=== PATIENT | female | born 1930 | race Caucasian/White ===

== ENCOUNTER 2017-05-07 07:28 | Inpatient (IN) | payer MEDICARE, OTHER ==
[2017-05-07 08:01] LABS: APPEARANCE HAZY (CLEAR); COLOR YELLOW (YELLOW)
[2017-05-07 08:02] LABS: BACTERIA MANY /hpf (NONE SEEN); BILIRUBIN NEGATIVE (NEGATIVE); EPITHELIAL CELLS 0-5 /hpf (0-5); GLUCOSE NEGATIVE (NEGATIVE); KETONE NEGATIVE (NEGATIVE); NITRITE NEGATIVE (NEGATIVE); PROTEIN TRACE mg/dL (NEGATIVE); RED CELLS - URINE 0-5 /hpf (0-5); SPECIFIC GRAVITY 1.015 (1.005-1.020); UROBILINOGEN NORMAL (NORMAL)
[2017-05-07 08:05] LABS: BASOPHILS 0 % (0-2); EOSINOPHILS 0 % (0-7); HEMATOCRIT 44.4 % (36.0-48.0); IMMATURE GRANULOCYTES 0.3 % (0-5); LYMPHOCYTES 6.1 % (15-50); MCH 30.3 pg (26.0-34.0); MCHC 33.8 g/dL (31.0-37.0); MCV 89.7 fL (80.0-100.0); MEAN PLATELET VOLUME 9.3 fL (7.4-10.4); MONOCYTES 12.6 % (2-11); PLATELET COUNT 434 10x3/uL (130-400); RBC 4.95 10x6/uL (4.00-5.40); RDW 14.9 % (11.5-14.5); WBC 17.2 10x3/uL (4.8-10.8)
[2017-05-07 08:20] LABS: ALBUMIN 3.5 g/dL (3.4-5.0); ANION GAP 14.5 mmol/L (8-16); BILIRUBIN - TOTAL 0.59 mg/dL (0.2-1.3); CALCIUM 10.1 mg/dL (8.5-10.1); CARBON DIOXIDE 31.8 mmol/L (21.0-32.0); CREATININE - SERUM 1.4 mg/dL (0.6-1.3); POTASSIUM - SERUM 3.3 mmol/L (3.5-5.1)
[2017-05-07] MEDS ORDERED: OMEPRAZOLE20 M1 PO ×2 (10:24→10:25)
[2017-05-07] MEDS ORDERED: NASONEX NASAL S17 GM NS (10:26)
--- NOTE | 2017-05-07 10:27 | NUR ---
NEW ADMIT FROM ER. IV PATENT. OREINTED TO ROOM. CALL LIGHT IN REACH. WILL CONT. PLAN OF CARE.
[2017-05-07] MEDS ORDERED: ZOFRAN4 MG PO (10:28)
[2017-05-07 10:33] VITALS: BP 133/60
[2017-05-07 10:52] VITALS: BP 133/60; BMI 22.6
[2017-05-07 15:55] VITALS: BP 187/79
[2017-05-07 19:00] VITALS: BP 144/68
--- NOTE | 2017-05-07 22:39 | NUR ---
1899-REPORT RECIEVED. 1919-SHIFT ASSESSMENT COMPLETE, PLEASE SEE FLOW SHEETS FOR DETAILS. DAUGHTER AT BEDSIDE. C/O N/V, WILL PROVIDE ZOFRAN PER ORDERS. DENIES ANY OTHER PAIN/NEEDS ATT. ANSWERED ALL QUESTIONS OF DAUGHTERS' TO BEST OF ABILITY. BED LOW AND LOCKED, CALL LIGHT IN REACH. WILL CPOC.
[2017-05-08 00:55] VITALS: BP 132/63
[2017-05-08 04:02] VITALS: BP 148/71
--- NOTE | 2017-05-08 04:17 | NUR ---
0100-C/O PAIN ON COUGHING, PROVIDED EXTRA PILLOW FOR SLINTING AND GAVE INSTRUCTIONS ON HOW TO PREFORM. DENIES ANY OTHER NEEDS ATT. DAUGHTER AT BEDSIDE. BED LOW AND LOCKED, CALL LIGHT IN REACH. 0300-SLEEPING, NO S&S OF DISTRESS NOTED. BED LOW AND LOCKED, CALL LIGHT IN REACH. WILL CPOC.
--- NOTE | 2017-05-08 05:18 | NUR ---
DAUGHTER CAME OUT OF ROOM AND SAID HER MOTHER WAS NOT DOING WELL, WENT INTO ROOM, SAUGHTER SHOWED ME APPROX. 400ML LIGHT BROWN AND STOOL SMELLING VOMIT, PAGED Ari DANIELSON APN, RECIVED ORDERS FOR NGT INSERTION TO LIS, SURGERY CONSULT, AND 25MG PHENOGREN Q6H PRN EITHER IM OR SUPPOSITORY AND GIVE PT CHOICE OF WHICH.
--- NOTE | 2017-05-08 05:45 | NUR ---
NGT INSERTED AND PLACEMENT VERIFIED VIA AIR INSTILATION. PUT TO VERY SHORT AMOUNT OF FULL CONSTANT SUCTION AND 200 DARK BROWN EMISIS OUT, THEN PLACED ON LIS. TOLERATED WELL. WILL CPOC.
[2017-05-08 06:04] LABS: BASOPHILS 0 % (0-2); EOSINOPHILS 0.3 % (0-7); HEMATOCRIT 39.1 % (36.0-48.0); HEMOGLOBIN 12.9 g/dL (12-16); IMMATURE GRANULOCYTES 0.1 % (0-5); LYMPHOCYTES 9.9 % (15-50); MCH 29.7 pg (26.0-34.0); MCV 90.1 fL (80.0-100.0); MEAN PLATELET VOLUME 9.5 fL (7.4-10.4); MONOCYTES 17.4 % (2-11); NEUTROPHILS 72.3 % (40-80); PLATELET COUNT 415 10x3/uL (130-400); RBC 4.34 10x6/uL (4.00-5.40); RDW 15.1 % (11.5-14.5)
[2017-05-08 06:09] LABS: WBC 7.7 10x3/uL (4.8-10.8)
[2017-05-08 06:18] LABS: ANION GAP 14.2 mmol/L (8-16); CALCIUM 8.8 mg/dL (8.5-10.1); CARBON DIOXIDE 26.4 mmol/L (21.0-32.0); POTASSIUM - SERUM 3.6 mmol/L (3.5-5.1)
--- NOTE | 2017-05-08 07:42 | NUR ---
CALL FROM FAMILY,PASSWORD CONFIRMED
[2017-05-08 07:45] VITALS: BP 148/67
--- NOTE | 2017-05-08 08:10 | NUR ---
ASSESSMENT PER FLOW SHEET.PT WIHTOUT DISTRESS. 400CC OF DARK GREEN/BROWN DRAINAGE IN NGT CANISTER. PT WITHOUT EMESIS AT PRESENT. SHE IS ALSO WITHOUT NAUSEA, RED AREAS NOTED TO BUTTOCKS WITHOUT BREAKDOWN. CALL LIGHT IN REACH
[2017-05-08 10:45] VITALS: BMI 22.6
--- NOTE | 2017-05-08 11:15 | NUR ---
NGT PULLED BACK AND READVANCED. DARK BROWN FLUID RETURN IN [facility].
[2017-05-08 11:37] VITALS: BP 158/71
--- NOTE | 2017-05-08 12:53 | NUR ---
RESTING BETTER,WITHOUT DISTRESS.CALL LIGHT IN REACH
--- NOTE | 2017-05-08 15:25 | NUR ---
ATTEMPTED REINSERTION OF 16 LITHUANIAN NGT. RESISTANCE FELT AFTER SOME ADVANCEMENT. 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
[2017-05-08 16:08] VITALS: BP 164/77
--- NOTE | 2017-05-08 18:48 | NUR ---
STILL WAITING ON CT. REMAINS WITHOUT DISTRESS,MINIMAL NAUSEA. WITHOUT CHANGE FROM INITIAL SHIFT ASSESSMENT.CONT PLAN OF CARE
--- NOTE | 2017-05-08 19:35 | NUR ---
ALERT/AWAKE DENIES PAIN OR ANY NEEDS. FAMILY PRESENT IN ROOM, INQUIRING ABOUT TIME OF CT SCAN. PATIENT C/O BEING VERY HUNGRY. ASSESSMENTS COMPLETED. IV IN L AC INTACT WITH IVF INFUSING. SCD'S ARE ON.
--- NOTE | 2017-05-08 20:30 | NUR ---
BACK FROM CT. HAVING SOME NAUSEA. VOMITED SMALL AMOUT OF BROWNISH EMESIS. DID NOT WANT THE ORAL ZOFRAN.
[2017-05-08 20:32] VITALS: BP 156/61
--- NOTE | 2017-05-08 21:15 | NUR ---
RECEIVED ORDER FOR ZOFRAN 4MG Q6H IV FROM FRANCISCA GOODRICH APN. STATED TO CALL DR. SZYMANSKI RE: PATIENT'S REQUEST FOR SOME FOOD.
--- NOTE | 2017-05-08 21:25 | NUR ---
DID NOT WANT THE ZOFRAN, STATING "FEEL MUCH BETTER NOW". REQUESTING SOME FOOD, EXPLAINED WAITING ON RETURN CALL FROM SURGEON DR SZYMANSKI.
[2017-05-09 00:05] VITALS: BP 165/66
[2017-05-09 05:21] VITALS: BP 161/72
[2017-05-09 05:21] LABS: BASOPHILS 4.7 % (0-2); EOSINOPHILS 0.4 % (0-7); HEMATOCRIT 36.8 % (36.0-48.0); HEMOGLOBIN 11.8 g/dL (12-16); IMMATURE GRANULOCYTES 0.4 % (0-5); LYMPHOCYTES 13.8 % (15-50); MCH 29.6 pg (26.0-34.0); MCHC 32.1 g/dL (31.0-37.0); MEAN PLATELET VOLUME 10.1 fL (7.4-10.4); MONOCYTES 17.2 % (2-11); NEUTROPHILS 63.5 % (40-80); PLATELET COUNT 376 10x3/uL (130-400); RBC 3.99 10x6/uL (4.00-5.40); RDW 15.1 % (11.5-14.5); WBC 6.9 10x3/uL (4.8-10.8)
[2017-05-09 05:25] LABS: MCV 92.2 fL (80.0-100.0)
[2017-05-09 05:32] LABS: ANION GAP 12.7 mmol/L (8-16); CALCIUM 8.8 mg/dL (8.5-10.1); CARBON DIOXIDE 27.8 mmol/L (21.0-32.0); CREATININE - SERUM 0.8 mg/dL (0.6-1.3); POTASSIUM - SERUM 3.5 mmol/L (3.5-5.1)
[2017-05-09 07:45] VITALS: BP 187/82
--- NOTE | 2017-05-09 07:45 | NUR ---
AM ROUNDS COMPLETED. INTRODUCED MYSELF TO PT PRIMARY RN FOR TODAYS SHIFT. PT A&O SITTING UP IN BED AND STATES SHE FEELS "AWFUL" PT HAS STILL BEEN VOMITING BROWN FOUL SMELLING EMESIS AND STATES ITS HARD TO TAKE DEEP BREATHES. LUNG SOUNDS ARE CTA THROUGHOUT ALL LOBES. PULSE OX 99% ON RA. PTS ABDOMEN IS DISTENDED FOR HER AND SHE STATES BIGGER THAN YESTERDAY. ABDOMEN IS SOFT AND SLIGHTLY TENDER. PT STATES NO BM SINCE SATURDAY MORNING. BOWEL SOUNDS ARE HYPOACTIVE. PT WEARING SCDS AND PULSES ARE PALPABLE, SLIGHT DEPENDENT EDEMA NOTED TO BILAT LE AND PT STATES ITS HER NORM R/T ARTHRITIS. PT C/O HER KNEE ACHING WELL FROM ARTHRITIS AND I ENCOURAGED HER TO GET UP AND BE AMBULATORY IF POSSIBLE. PT CURRENTLY ABOUT TO BATHE WITH DAUGHTER AT BEDSIDE AND THEN WILL TRY FOR A WALK. FAMILY INQUIRING ABOUT PTS NG TUBE R/T NOT BEING IN OR BEING ABLE TO REPLACE IT STATES TOLD HER THEY MAY NEED IT DONE WITH A SCOPE. WILL PAGE AND FIND OUT PLAN. NO FURTHER NEEDS AT THIS TIME. CL IN REACH, BED IN LOWEST, SIDE RAILS X2. WILL CPOC.
--- NOTE | 2017-05-09 08:00 | NUR ---
DR.BREVING ORTIZ WITH CONSULT FOR IR FOR NG PLACEMENT. IR STATES THEY CAN DO IT AROUND 1030. DISCUSSED WITH FAMILY AND PT BOTH VERBALIZED UNDERSTANDING AND DENY ANY FURTHER QUESTIONS OR NEEDS AT THIS TIME. WILL CPOC.
--- NOTE | 2017-05-09 09:29 | NUR ---
PT OUT AMBULATING WITH FAMILY MEMBER AT SIDE AND USING A WALKER. GAIT SLOW STEADY AND SAFE. NONSLIP SOCKS IN PLACE. PT DENIES ANY CURRENT NEEDS.
--- NOTE | 2017-05-09 10:58 | NUR ---
IR CALLED REQUESTING ME TO INSERT NG MUCH POSSIBLE THEN THEY CAN ADVANCE IT FURTHER. PT AND FAMILY REFUSED THIS AND STATED "I DO NOT FEEL COMFORTABLE WITH THAT BECAUSE IT HAS BEEN TRIED 3 TIMES UNSUCCESSFUL AND I DONT FEEL COMFORTABLE" REPORTED TO IR. NO FURTHER NEEDS AT THIS TIME. WILL CONTINUE TO WAIT.
--- NOTE | 2017-05-09 11:20 | NUR ---
PT LEAVING FOR NG PLACEMENT NOW.
--- NOTE | 2017-05-09 12:49 | NUR ---
PT BACK FROM NG PLACEMENT. NG SECURED TO NOSE AND CONNECTED TO LIS ON WALL CANISTER. PT DRAINING DARK BROWN FLUIDS WITH OVER 400ML OUTPUT SINCE BEING PLACED. PROVIDED PT WITH ORAL CARE AND SHE VOICED THANKS. PT DENIES ANY FURTHER NEEDS AT THIS TIME. CL IN REACH, FAMILY AT BEDSIDE. WILL CPOC.
--- NOTE | 2017-05-09 13:34 | NUR ---
AT BESIDE AND ATTEMPTED MANIPULATION OF HERNIA TO R.GROIN AND WAS UNSUCCESSFUL PT WILL BE SCHEDULED FOR EMERGENT SX AND REPAIR. PT AND FAMILY AT BEDSIDE AND VERBALIZED UNDERSTANDING. CONSENTS BEING SIGNED AND AWAITING SX ROOM. WILL CPOC.
--- NOTE | 2017-05-09 14:09 | NUR ---
EKG COMPLETED ORDERED. PRE OP MEDS GIVEN AND PRE OP CHECKLIST DONE. ALL JEWLRY REMOVED AND ALLERGY BAND IN PLACE. PT READY TO LEAVE. SX TECH HERE NOW AND TAKING PT. NO FURTHER NEEDS AT THIS TIME. WILL CPOC.
--- NOTE | 2017-05-09 17:08 | NUR ---
TRANSFERRING CARE TO MISSAEL Thompson RN
--- NOTE | 2017-05-09 17:09 | NUR ---
TAKING OVER PT FROM RN GABRIELLA IN STABLE CONDITION. A&OX4. WILL CONTINUE TO MONITOR
[2017-05-09 17:41] VITALS: BP 158/58
--- NOTE | 2017-05-09 17:54 | NUR ---
PT BACK FROM PROCEDURE AND RESTING QUIETLY. RR NONLABORED WITH NC @2L IN PLACE. VSS AND BEING MONITERED Q15MIN PER POLICY FOR POST OP. PT HAS AN INCISION TO HER R.GROIN WITH STERI STRIPS INTACT AND CLEAN. NO S/S OF INFECTION OR BLEEDING NOTED. PT NOW HAS MATTHEW WITH STAT LOCK SECURED TO R.INNER THIGH DRAINING CLEAR YELLOW URINE. CALLED SX AND THEY STATED TO KEEP MATTHEW IN OVERNIGHT R/T HER AGE AND PROCEDURE. TEACHING PROVIDED TO FAMILY ABOUT HER UTI AND FURTHER INFECTION RISK R/T MATTHEW IN PLACE. WILL KEEP CLEAN AND PROVIDE MATTHEW CARE AND REMOVE SOON ALLOWED. PT DENIES ANY CURRENT PAIN OR NEEDS AT THIS TIME. CL IN REACH, BED IN LOWEST, SIDE RAILS X2. WILL CPOC.
--- NOTE | 2017-05-09 18:02 | NUR ---
REASON NO STOOL COLLECTED ON MY SHIFT-PT DID NOT HAVE BOWEL MOVEMENT. PT IS AWARE OF COLLECTOIN NEEDED AND VERBALIZED UNDERSTANDING. WILL PASS OFF IN REPORT.
--- NOTE | 2017-05-09 19:40 | NUR ---
TITLE ASSISTANT AT BEDSIDE TO OBTAIN VITALS, CALL LIGHT IN REACH. WILL CONTINUE WITH PLAN OF CARE.
--- NOTE | 2017-05-09 19:46 | NUR ---
PT IN BED FAMILY AT BEDSIDE. DENIES NEEDS AT THIS TIME.
[2017-05-10] VITALS: BP 156/63
[2017-05-10 04:00] VITALS: BP 155/67
[2017-05-10 05:45] LABS: BASOPHILS 0.1 % (0-2); EOSINOPHILS 0 % (0-7); HEMATOCRIT 37.2 % (36.0-48.0); HEMOGLOBIN 11.9 g/dL (12-16); IMMATURE GRANULOCYTES 0.4 % (0-5); LYMPHOCYTES 9.3 % (15-50); MCH 29.6 pg (26.0-34.0); MCV 92.5 fL (80.0-100.0); MEAN PLATELET VOLUME 9.6 fL (7.4-10.4); MONOCYTES 10.4 % (2-11); NEUTROPHILS 79.8 % (40-80); PLATELET COUNT 349 10x3/uL (130-400); RBC 4.02 10x6/uL (4.00-5.40)
[2017-05-10 05:53] LABS: CALC OSMOLALITY 291 mosm/kg (275-300); CALCIUM 8.5 mg/dL (8.5-10.1); CARBON DIOXIDE 21.3 mmol/L (21.0-32.0); CHLORIDE - SERUM 112 mmol/L (98-107); CREATININE - SERUM 0.7 mg/dL (0.6-1.3); GLUCOSE 90 mg/dL (74-106); POTASSIUM - SERUM 3.7 mmol/L (3.5-5.1); SODIUM 145 mmol/L (136-145); UREA NITROGEN 21 mg/dL (7-18); eGFR NON AFRICAN AMERICAN 84 mL/min (90-120)
--- NOTE | 2017-05-10 07:45 | NUR ---
AM ROUNDS COMPLETED. SHIFT ASSESSMENT DONE. PT REMEMBERS ME HER PRIMARY RN FROM YESTERDAY. PT A&O AND STATES SHE IS FEELING BETTER OVERALL. NO FURTHER VOMITING SINCE SX YESTERDAY. NGT STILL SECURED TO TitiNARE AND CONNECTED TO LIS. DRAINAGE NOW GREEN BILE LOOKING LIQUID NO BROWN DRAINAGE NOTED. R.GROIN INCISION STILL CLEAN AND DRY. MATTHEW STILL IN PLACE BUT NO NEED SO AWAITING ON ORDERS TO D/C. PT DENIES ANY CURRENT PAIN OR NEEDS. CL IN REACH. WILL CPOC.
[2017-05-10 08:02] VITALS: BP 171/66
--- NOTE | 2017-05-10 10:51 | NUR ---
Patient Name: LM LOW Admission Status: ER Accout number: [id number] Admission Date: 05-07-2017 : 1930 Admission Diagnosis:NAUSEA WITH VOMITING, UNSPECIFIED Attending: DANIEL AGARWAL Current LOS: 3 Anticipated DC Date: Planned Disposition: Home Primary Insurance: MEDICARE A & B LATE ENTRY FROM 05-09-17: Discharge Planning Comments: * Is the patient Alert and Oriented? Yes 0 * How many steps to enter\exit or inside your home? 2 0 * PCP DR. BERNABE 0 * Pharmacy [id number] 0 * Preadmission Environment Home Alone 0 * ADLs Independent 0 * Equipment Cane Walker 0 * Other Equipment [facility] NEEDS NO MEDICAL EQUIPMENT PROVIDER PREFERENCE 0 * List name and contact numbers for known caregivers / representatives who currently or will assist patient after discharge: HELADIO WELLS DTR, 0 * Community resources currently utilized None 0 * Please name any agencies selected above. NONE 0 * Additional services required to return to the preadmission environment? No 0 * Can the patient safely return to the preadmission environment? Yes 0 * Has this patient been hospitalized within the prior 30 days at any hospital? No 0 CM MET WITH PT IN ROOM TO DISCUSS DISCHARGE PLANNING AND NEEDS. PT REPORTS LIVING AT HOME INDEPENDENTLY AND ALONE. PT HAS CANE AND 2 WHEELED WALKER; PT HAS NO MEDICAL EQUIPMENT PROVIDER PREFERENCE AND THINKS SHE WOULD USE THE [facility] FOR ANY EQUIPMENT THAT SHE CAN GET THERE. PT HAS NO OUTSIDE SERVICES ASSISTING IN THE HOME. CM DISCUSSED AVAILABILITY OF HOME HEALTH, REHAB SERVICES AND MEDICAL EQUIPMENT. PT DENIES DISCHARGE NEEDS, REPORTS HER DAUGHTER WILL PICK HER UP FOR DISCHARGE HOME. PT PLANS TO DISCHARGE HOME, DENIES DISCHARGE NEEDS AT THIS TIME. CM TO FOLLW AND ASSIST NEEDED. Inserting Machine Operator: Kelton Amaral
--- NOTE | 2017-05-10 11:04 | NUR ---
Nutrition Follow Up: Chart reviewed. Pt is POD 1 open R inguinal hernia repair with mesh; small bowel obstruction. Wt stable. No BM. Meds and labs reviewed. Rec advancing SEKOU when medically feasible. RD following.
[2017-05-10 12:00] VITALS: BP 184/72
--- NOTE | 2017-05-10 12:32 | NUR ---
TEGADERM CHANGED TO L.AC PIV R/T IT BEING SOILED WITH LEAKAGE, PIV STILL PATENT AND FLUSHES WELL WILL KEEP AN EYE ON IT. NS WITH 20MEQ OF KCL INFUSING @100ML/HR ALONG WITH Q24 IVPB ROCEPHIN. DRSG NOW CDI AND SWAB CAPS IN USE. PT RESTING WITH FAMILY AT BEDSIDE. RR NONLABORED ON RA. PT DENIES ANY CURRENT NEEDS AT THIS TIME. CL IN REACH. WILL CPOC.
--- NOTE | 2017-05-10 13:15 | NUR ---
ASSUMED CARE OF PT. FAMILY AT BEDSIDE. FAMILY AT PT REQUESTING TO H AVE NG AND MATTHEW CATHETER REMOVED TODAY. DR. DEMARCO HAS BEEN PAGED. RR EVEN AND UNLABORED. WILL CTM.
--- NOTE | 2017-05-10 13:28 | NUR ---
CALLED INQUIRING ABOUT MATTHEW OUT AND NGT PT REQUESTED. WILL REMOVE BOTH BUT STILL WANTS NPO EXCEPT ICE CHIPS. WILL CPOC.
--- NOTE | 2017-05-10 14:22 | NUR ---
MATTHEW CATHETER REMOVED. 10 MLS OF FLUID REMOVED FROM MATTHEW BALLOON PRIOR TO REMOVAL. NG TUBE REMOVED, 250 MLS OF GREEN, LIQUID NOTED IN SUCTION CONTIANER. PT NOW RESTING QUIETLY, REPORTS FEELING MUCH BETTER SINCE NG TUBE REMOVAL.
[2017-05-10 16:00] VITALS: BP 188/69
--- NOTE | 2017-05-10 18:40 | NUR ---
PT RESTING QUIETLY, STILL NO URINE OUTPUT OR BM SINCE MATTHEW REMOVAL. PT DENIES FEELING THOUGH SHE NEEDS TO URINATE. WILL GIVE REPORT ON PT CONDTION FOR THE DAY, FAMILY AT BEDSIDE.
[2017-05-10 19:00] VITALS: BP 146/74
--- NOTE | 2017-05-10 19:00 | NUR ---
ALERT/AWAKE ORIENTED X 4. ASSESSMENTS COMPLETED. LOWER RIGHT ABD INCISION WITH STERI-STRIP INTACT. NO BLEEDING OR SWELLING NOTED. IV IN L AC WITH NS 20 INFUSING AT 100 ML/HR. DENIES ANY NEEDS OR DISCOMFORTS. FAMILY MEMBER PRESENT IN ROOM.
--- NOTE | 2017-05-10 19:00 | NUR ---
ALERT/AWAKE ORIENTED X 4. ASSESSMENTS COMPLETED. LOWER RIGHT ABD INCISION WITH STERI-STRIP INTACT. NO BLEEDING, REDNESS OR SWELLING NOTED. IV IN R FA INTACT SL. TELEMETRY SHOWS 79 CAFIB. SCD'S ARE ON. FAMILY PRESENT IN ROOM. NO QUESTIONS OR CONCERNS VOICED.
--- NOTE | 2017-05-10 20:00 | NUR ---
SOCIAL MEDIA CONTENT MANAGER ASSISTED TO BATHROOM TO VOID, STATED IV FELL OUT.
--- NOTE | 2017-05-10 23:30 | NUR ---
IV RESITED IN LEFT ARM, FLUIDS RESTARTED. DENIES ANY NEEDS.
[2017-05-11] VITALS: BP 174/72
[2017-05-11 04:00] VITALS: BP 172/74
--- NOTE | 2017-05-11 05:11 | NUR ---
RESTING QUIETLY WITH EYES CLOSED. RR EVEN U/L. NO S/S OF DISCOMFORT. FAMILY MEMBER PRESENT IN ROOM.
--- NOTE | 2017-05-11 05:46 | NUR ---
ASSISTED TO BATHROOM TO VOID. NO OTHER NEEDS VOICED.
[2017-05-11 06:21] LABS: BASOPHILS 0.2 % (0-2); EOSINOPHILS 2.2 % (0-7); HEMATOCRIT 36.7 % (36.0-48.0); HEMOGLOBIN 11.7 g/dL (12-16); IMMATURE GRANULOCYTES 0.9 % (0-5); MCH 29.3 pg (26.0-34.0); MCHC 31.9 g/dL (31.0-37.0); MEAN PLATELET VOLUME 9.5 fL (7.4-10.4); MONOCYTES 12.8 % (2-11); NEUTROPHILS 68.9 % (40-80); PLATELET COUNT 352 10x3/uL (130-400); RBC 3.99 10x6/uL (4.00-5.40); RDW 14.6 % (11.5-14.5)
[2017-05-11 06:41] LABS: CALC OSMOLALITY 284 mosm/kg (275-300); CALCIUM 8.7 mg/dL (8.5-10.1); CARBON DIOXIDE 20.5 mmol/L (21.0-32.0); CHLORIDE - SERUM 109 mmol/L (98-107); CREATININE - SERUM 0.7 mg/dL (0.6-1.3); GLUCOSE 79 mg/dL (74-106); POTASSIUM - SERUM 3.3 mmol/L (3.5-5.1); SODIUM 143 mmol/L (136-145); UREA NITROGEN 15 mg/dL (7-18); eGFR NON AFRICAN AMERICAN 84 mL/min (90-120)
--- NOTE | 2017-05-11 07:49 | NUR ---
AM ROUNDS COMPLETED. INTRODUCED MYSELF TO PT PRIMARY RN FOR TODAYS SHIFT. PT A&O SITTING UP IN BED AND STATES SHE FEELS "MISERABLE" AND "STARVING" PREFERRED PT TO REMAIN NPO UNTIL SHE COULD HAVE A BOWEL MOVEMENT BUT PT FEELS SHE CANT WITHOUT FOOD AND STATES SHE HASNT EATEN IN A WEEK. PT IS NOW PASSING GAS AND BOWEL SOUNDS ARE ACTIVE. WILL NOTIFY AND SEE IF SHE CAN MAYBE START CLEAR LIQUIDS OR POPCICLES. R.GROIN INCISION CDI WITH STERI-STRIP IN PLACE, NO S/S OF BLEEDING OR HEMATOMA NOTED. PTS MATTHEW WAS REMOVED YESTERDAY AND SHE STATES SHE HAS VOIDED SEVERAL TIMES SINCE. PT READY TO AMBULATE WITH THERAPY TODAY AND IS MOTIVATED. PT DENIES ANY CURRENT PAIN OR NEEDS AT THIS TIME. CL IN REACH, BED IN LOWEST, SIDE RAILS X2. WILL CPOC.
[2017-05-11 08:00] VITALS: BP 165/72
--- NOTE | 2017-05-11 10:00 | NUR ---
PT OOB WITH THERAPY AND AMBULATING IN THE [place] WITH WALKER. GAIT IS SLOW AND STEADY. NO CURRENT NEEDS. WILL CPOC.
[2017-05-11 12:00] VITALS: BP 157/73
--- NOTE | 2017-05-11 12:22 | NUR ---
INITIATED PTS IVPB INFUSING VIA L.FA PIV WITH VALERI CDI AND SWAB CAPS IN USE. CALLED AND HE OKAY'D FOR CLEAR LIQUID DIET, TEACHING PROVIDED TO PT TO TAKE IT SLOW AND WHAT THAT DIET WILL CONSIST OF. PT SITTING UP IN BEDSIDE CHAIR AND DENIES ANY PAIN OR CURRENT NEEDS. WILL CPOC.
[2017-05-11 16:00] VITALS: BP 189/79
[2017-05-11 19:00] VITALS: BP 169/76
--- NOTE | 2017-05-11 19:44 | NUR ---
RECEIVED REPORT, WILL ASSUME CARE OF PT, PT SLEEPING, BED IS LOW, SRX2, CALL LIGHT IN REACH, WILL CONTINUE PLAN OF CARE
[2017-05-12] VITALS: BP 173/75
--- NOTE | 2017-05-12 00:21 | NUR ---
ASSESSMENT COMPLETE, SEE FLOW SHEET, PT AWAKE, BED IS LOW, SRX2, SCD ARE ON, CALL LIGHT IN REACH, DAUGHTER AT BEDSIDE, WILL CONTINUE PLAN OF CARE
[2017-05-12 04:03] VITALS: BP 164/70
[2017-05-12 06:37] LABS: BASOPHILS 0.1 % (0-2); EOSINOPHILS 4.2 % (0-7); HEMATOCRIT 35.5 % (36.0-48.0); HEMOGLOBIN 11.5 g/dL (12-16); IMMATURE GRANULOCYTES 0.8 % (0-5); LYMPHOCYTES 16.9 % (15-50); MCH 29.3 pg (26.0-34.0); MCHC 32.4 g/dL (31.0-37.0); MCV 90.6 fL (80.0-100.0); MEAN PLATELET VOLUME 9.2 fL (7.4-10.4); MONOCYTES 11.4 % (2-11); NEUTROPHILS 66.6 % (40-80); PLATELET COUNT 320 10x3/uL (130-400); RBC 3.92 10x6/uL (4.00-5.40); RDW 14.6 % (11.5-14.5); WBC 9.1 10x3/uL (4.8-10.8)
[2017-05-12 06:41] LABS: CALC OSMOLALITY 282 mosm/kg (275-300); CALCIUM 8.3 mg/dL (8.5-10.1); CARBON DIOXIDE 19.9 mmol/L (21.0-32.0); CHLORIDE - SERUM 110 mmol/L (98-107); CREATININE - SERUM 0.5 mg/dL (0.6-1.3); GLUCOSE 91 mg/dL (74-106); POTASSIUM - SERUM 3.3 mmol/L (3.5-5.1); SODIUM 142 mmol/L (136-145); UREA NITROGEN 12 mg/dL (7-18); eGFR NON AFRICAN AMERICAN > 90 mL/min (90-120)
--- NOTE | 2017-05-12 07:45 | NUR ---
INTRODUCED MYSELF TO PT PRIMARY RN FOR TODAYS SHIFT. PT A&O AND STATES SHE IS FEELING "ALRIGHT" BUT HOPING TO HAVE HER DIET ADVANCED SO SHE CAN HAVE A BOWEL MOVEMENT AND GET DISCHARGED SOON. PT DENIES ANY CURRENT PAIN OR NEEDS. CL IN REACH. WILL CPOC.
[2017-05-12 08:00] VITALS: BP 171/63
--- NOTE | 2017-05-12 10:33 | NUR ---
MORNING MEDICATIONS GIVEN. PROVIDED PT WITH POTASSIUM PILL FOR EP REPLACEMENT OF K LEVEL 3.3. PT DIDNT WANT THE LIQUID FORM R/T UPSETTING HER STOMACH. ASSISTED PT BACK INTO BED FROM AND REPOSITIONED PT UP IN BED FOR COMFORT. BILAT SCDS IN PLACE AND SKIN WNL. BOWEL SOUNDS ACTIVE X4 AND ABDOMEN SOFT AND NONDISTENDED. PT STILL ON LIQUID DIET AND TOLERATING WELL PT STATES "IM STARVING AND WANT MORE FOOD AND SOLID" PT STILL UNABLE TO HAVE A BOWEL MOVEMENT BUT STATES SHE IS PASSING A LOT OF GAS. WILL DISCUSS WITH AND SEE ABOUT ADVANCING TO A FULL LIQUID. PT VOICED THANKS AND DENIES ANY FURTHER NEEDS AT THIS TIME. CL IN REACH, BED IN LOWEST, SIDE RAILS X2 AND FAMILY AT BEDSIDE. WILL CPOC.
[2017-05-12 12:00] VITALS: BP 171/63
--- NOTE | 2017-05-12 13:14 | NUR ---
CALLED AND GOT DIET ADVANCED TO FULL LIQUID REQUESTED BY PT. PT IS STILL PASSING A LOT OF GAS BUT NO BM. PROVIDED PT WITH MILK OF MAG ORDERED TO HELP PRODUCE MOVEMENT. PT DENIES ANY FURTHER NEEDS AT THIS TIME. WILL CPOC.
--- NOTE | 2017-05-12 14:00 | NUR ---
PT AMBULATED WITH THERAPY. PT BACK IN BED AND C/O HER INCISION ACHING/THROBBING, PROVIDED PT WITH AN ICE PACK AND SHE VOICED THANKS AND WILL CALL IF PAIN IS NOT RELIEVED. PT DENIES ANY FURTHER NEEDS AT THIS TIME. FAMILY AT BEDSIDE VISITING WILL CPOC.
--- NOTE | 2017-05-12 15:33 | NUR ---
PT HAD VERY LARGE INCONTINENT DARK GREENISH LIQUID STOOL. SPECIMEN COLLECTED AND SENT TO LAB ORDERED. PT FEELS VERY RELIEVED SHE STATES AND I ASSISTED HER INTO SHOWER TO GET CLEANED UP. COMPLETE BED CHANGE AND LINEN CHANGE DONE. FAMILY IN ROOM ASSISTING HER WITH SHOWER NO FURTHER NEEDS AT THIS TIME. WILL CPOC.
[2017-05-12 16:00] VITALS: BP 178/81
--- NOTE | 2017-05-12 16:00 | NUR ---
PT DONE WITH HER SHOWER. ASSISTED HER BACK INTO BED AND RECONNECTED TO ORDERED IV FLUIDS. TUBING CHANGED OUT PER Q72H POLICY, NEW TUBING DATED AND INTIALED. PT RESTING AND STATES SHOWER FELT GOOD AND SHE FEELS A LOT BETTER. CL IN REACH, BED IN LOWEST, SIDE RAILS X2, NO FURTHER NEEDS AT THIS TIME. WILL CPOC.
--- NOTE | 2017-05-12 18:36 | NUR ---
PT ASKED FOR ASSISTANCE ONTO BEDPAN AND HAD ANOTHER DARK GREEN LOOSE BM. PT RESTING IN BED AND STATES SHE IS FEELING GOOD AND HOPES TO ADVANCE DIET TO REGULAR FOOD SO SHE CAN GO HOME SOON. PT DENIES ANY CURRENT NEEDS AT THIS TIME. CL IN REACH, WILL CPOC.
--- NOTE | 2017-05-12 19:25 | NUR ---
RECEIVED REPORT, WILL ASSUME CARE OF PT, PT DENIES ANY NEEDS, PLAYING GAME WITH HER SON, BED IS LOW, SR2, CALL LIGHT IN REACH, WILL CONTINUE PLAN OF CARE
[2017-05-12 20:26] VITALS: BP 150/65
[2017-05-13] VITALS (7 sets, daily range): BP systolic 146–187; BP diastolic 66–101
--- NOTE | 2017-05-13 03:56 | NUR ---
ASSESSMENT COMPLETE, SEE FLOW SHEET, PT IS SLEEPING, BED IS LOW, SR2, CALL LIGHT IN REACH, SON AT BEDSIDE, WILL CONTINUE PLAN OF CARE
--- NOTE | 2017-05-13 07:14 | NUR ---
AM ROUNDS - PT IN BED AND APPEARS TO BE SLEEPING WITH EQUAL AND NON LABORED BREAHTING. IV TO LEFT FA, SL. BED AT LOWEST POSITION. CALL CALDERON IN USE/REACH. SIDE RIALS UP 2. WILL CONTINUE TO MONITOR
--- NOTE | 2017-05-13 13:36 | NUR ---
Patient Name: LM LOW Encounter No: [id number] : 1930 Primary Insurance: MEDICARE A & B Anticipated DC Date: Planned Disposition: Home WITH HOME HEALTH External Planned Provider: WAITING PATIENT CHOICE OF AGENCY DCP follow-up note: CM RECEIVED REQUEST TO MEET WITH PT AND HER SON IN ROOM. CM MET WITH PT AND SON IN ROOM TO DISCUSS DISCHARGE NEEDS AND PLANNING. CM DISCUSSED AVAILABILITY OF HOME HEALTH, REHAB SERVICES AND MEDICAL EQUIPMENT. PT REPORTS SHE WANTS TO GO HOME. FAMILY TO TRANSPORT HOME AT DISCHARGE. PT REPORTS SHE WILL ACCEPT HOME HEALTH AND WILL DISCUSS PROVIDER WITH FAMILY AND COMPLETE CHOICE FORM. PT'S SON REPORTS A FAMILY MEMBER WILL STAY WITH PT FOR AT LEAST THE FIRST THREE DAYS AT PT'S HOME TO ENSURE PT IS SAFE AND DOING OK. CM PROVIDED INFORMATION ON CARE HOME FACILITIES AND PERSONAL CARE AGENCIES. IMPORTANT MESSAGE FROM MEDICARE PROVIDED AND EXPLAINED. CM TO ARRANGE HOME HEALTH WITH PT CHOICE WELL PHYSICIAN AGREEMENT AND ORDERS FOR HOME HEALTH. Kelton Amaral, CASE MANAGEMENT
--- NOTE | 2017-05-13 15:16 | NUR ---
PT IS IN BED AT THIS TIME WITH A VISITOR AT BEDSIDE. NO NEEDS. WILL CONTINUE TO MONITOR
--- NOTE | 2017-05-13 19:24 | NUR ---
RECEIVED REPORT, WILL ASSUME CARE OF PT, PT DENIES ANY NEEDS, BED IS LOW, SR2, SCD ARE ON, CALL LIGHT IN REACH, WILL CONTINUE PLAN OF CARE
--- NOTE | 2017-05-14 02:24 | NUR ---
PT ASLEEP. RESPIRATIONS EVEN AND UNLABORED. SCD'S ON BILATERAL LOWER EXTREM. POTASSIUM CHLORIDE 20MEQ INFUSING TO LEFT FOREARM AT 10. PT HAS NO S/S OF DISTRESS. BED LOW AND CALL LIGHT IN REACH. WILL CPOC
--- NOTE | 2017-05-14 03:17 | NUR ---
ASSESSMENT COMPLETE, SEE FLOWSHEET, PT RESTING, BED IS LOW, SR2, SCD ARE ON, CALL LIGHT IN REACH, WILL CONTINUE PLAN OF CARE
[2017-05-14 05:07] VITALS: BP 179/79
--- NOTE | 2017-05-14 07:36 | NUR ---
AM ROUNDS - PT IN BED AND APPEARS TO BE SLEEPING AT THIS TIME WITH EQUALA ND NON LABORED BREATHING. IV TO LEFT FA, NS WITH 20K+ AT 10CC/HR. SCD ARE ON AT THIS TIME. PT IS ON ROOM AIR. WILL CONTINUE TO MONITOR
--- NOTE | 2017-05-14 10:23 | NUR ---
Patient Name: LM LOW Encounter No: [id number] : 1930 Primary Insurance: MEDICARE A & B Anticipated DC Date: 05-14-2017 Planned Disposition: Home with Home Health External Planned Provider: [facility] DCP follow-up note: CM RECEIVED DISCHAGE ORDER, SPOKE TO PT IN ROOM WHO DOES WANT HOME HEALTH, HER FAMILY THINKS SHE NEEDS IT FOR ABOUT THREE WEEKS TO MAKE SURE SHE IS SAFE RETURNING HOME. PT CHOSE [facility], SIGNED CHOICE. PT REPORTS HER DAUGHTER IN [place] IS ON THE WAY TO PICK HER UP AND WILL STAY WITH HER FOR THREE DAYS AND FAMILY WILL MAKE DETERMINATION IF SHE NEEDS TO GO TO [facility] OR HIRE HOME CARE. PT DENIES FURHTER DISCHARGE NEEDS. PASTE UP WORKER NOTIFIED. CM RECEIVED HOME HEALTH ORDER, CALLED [facility], , PROVIDED REFERRAL TO [facility] WHO WILL PLACE PT ON SCHEDULE FOR HOME HEALTH ADMISSION. CM FAXED REFERRAL TO [facility], . Kelton Amaral, CASE MANAGEMENT
[2017-05-14 12:14] VITALS: BP 105/60
--- NOTE | 2017-05-14 12:26 | NUR ---
D/C - WRITTEN AND VERBAL D/C INSTRUCTIONS GIVEN TO PT AND FAMILY MEMBER. IV TO LEFT FA D/C, CATH TIP INTACT, 22 DRESSING APPIED AND SECURES WITH TAPE. PT TOLERATED WELL. PT IS GETTING DRESSED AT THIS TIME. WILL LET ME KNOW WHEN SHE IS READY. WILL CONTINUE TO MONITOR
--- NOTE | 2017-05-14 12:33 | NUR ---
PT LEFT FLOOR VIA WHEELCHAIR WITH FAMILY AND VOLUNTEER. WILL D/C
--- NOTE | 2017-05-15 10:17 | CN ---
PATIENT NAME:LM LOW MEDICAL RECORD: [id number] : [birth year] LOCATION:D. D.[id number] ADMIT DATE: 05/07/17 ACCOUNT: [id number] CONSULTING PHYSICIAN: JIMMY SZYMANSKI MD REFERRING PHYSICIAN: DANIEL SARMIENTO MD DATE OF CONSULTATION: 05/08/2017 CHIEF COMPLAINT: Nausea. HISTORY OF PRESENT ILLNESS: The patient have nausea and vomiting. She is to undergo a CT scan. The symptoms came on gradually. The patient had been exerting herself. She has had no prior abdominal operations. Nothing aggravates. Nothing alleviates. 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 This had to be placed in radiology. They aspirate via the nasogastric tube has been feculent. Symptoms are worsening. This is a consultation note addendum. For the typed portion of the consult note, please see the chart, these would include the past medical and surgical history, allergies, current medications, family history, as well as social history. REVIEW OF SYSTEMS: Positive for nausea, positive for vomiting. No fever, no chills, no chest pain, no shortness of breath. The review of systems is negative other than as is described above. PHYSICAL EXAMINATION: GENERAL: The patient does appear acutely ill. She does not appear chronically ill. VITAL SIGNS: Reviewed. The entire physical examination was performed in the presence of a female nurse. EARS: External ears appear normal. EYES: Extraocular movements are intact. NECK: Trachea is midline. CHEST: No intercostal retractions. PULMONARY: Nonlabored, no stridor. ABDOMEN: Nontender. EXTREMITIES: No peripheral cyanosis. INTEGUMENT: No rash, no ulcerations. PSYCHIATRIC: Normal affect. BACK: Mild thoracic kyphosis is noted. LYMPHATICS: No lymphangitic streaking of the exposed extremities. IMPRESSION: Small bowel obstruction of uncertain etiology. PLAN: I will wait the CT images. Continue with the nasogastric suction. IV hydration. TRANSINT:[id number] Voice Confirmation ID: [id number] DOCUMENT ID: [id number] CONSULT REPORT [id number] LM LOW ROBERT MD at 1017 CC: [id number] DICTATION DATE: 05/13/17 1558 PRODUCTION ADMINISTRATIVE ASSISTANT: 05/13/171913 DIS IN 05/14/17 [facility] [address] [place] [address]
--- NOTE | 2017-05-15 10:17 | OP ---
PATIENT NAME: LM LOW MEDICAL RECORD: [id number] :31 LOCATION:D.M2 D.2138 ADMISSION DATE:05/07/17 SURGEON: JIMMY SZYMANSKI MD DATE OF OPERATION: 05/09/2017 PREOPERATIVE DIAGNOSIS: Small bowel obstruction due to incarcerated right inguinal hernia. POSTOPERATIVE DIAGNOSIS: Small bowel obstruction due to a strangulated right femoral hernia. PROCEDURES: 1. Open right inguinal hernia repair with bilayer Vicryl mesh. 2. Small bowel resection with anastomosis. SURGEON: Jimmy Szymanski MD STRIKE OPERATIONS OFFICER: None. BLOOD LOSS: Minimal. ANESTHESIA: General. COMPLICATIONS: None. The risks, possible complications and alternatives to the procedure were explained to the patient. She elects to proceed. OPERATIVE COURSE: The patient was conveyed to the operating room electively on 05/09/2017. General anesthesia was induced by the anesthesia staff. The abdomen and genitals were sterilely prepped and draped. I did not detect a right inguinal hernia on my examination yesterday; however, I am able to detect one now. It was also quite obvious on the CT scan. The hernia was irreducible. The patient was conveyed to the operating room urgently on 05/09/2017. General anesthesia was induced by the anesthesia staff. The abdomen was sterilely prepped and draped. A transverse incision was accomplished in the right groin. Sharp dissection was carried down through the skin and subcutaneous tissue as well as Rodrick fascia. I incised the external oblique aponeurosis along the direction of its fibers. I bluntly dissected down through the internal oblique and transverse abdominis muscle layers. I began to create a preperitoneal pocket. I was unable to reduce the hernia sac which was a femoral hernia sac. I then dissected subcutaneously down to the inguinal ligament. Below the inguinal ligament was the hernia sac. I incised into the hernia sac. I then incised the peritoneal cavity as well. While pulling from inside the peritoneal cavity and pushing up through the hernia sac, I was able to reduce the incarcerated bowel. It was the side wall of a portion of small bowel on the antimesenteric border that was necrotic. I placed the proximal distal small bowel and apposition side by side. Small enterotomies were accomplished. Anvils of the EKATERINA-75 stapler were advanced and then fired. I then stapled the enteric defect off with a single firing of the EKATERINA-75 stapler. This also stapled off the necrotic portion of the bowel. The mesenteric rent was closed with 3-0 Vicryls. OPERATIVE REPORT [id number] LM LOW I excised the necrotic hernia sac with the electrocautery. As this contained gangrene, a synthetic mesh was contraindicated. I cut 2 ovals of Vicryl mesh and sutured the 2 ovals together one on top of the other with a running #1 Surgidac. I placed this in the preperitoneal space. Once I was satisfied with placement of the mesh, I allowed the muscular layers to fall together over the mesh. The muscles were sutured with the underlying Vicryl mesh with multiple interrupted horizontal mattress 0 Surgidac. The external oblique aponeurosis was closed with running #1 Vicryls. Rodrick fascia was approximated with interrupted 3-0 Vicryls. The subdermis was approximated with interrupted 3-0 Vicryls. The skin was approximated with a running intracuticular 4-0 Vicryl. Benzoin and Steri-Strips were applied. The patient was then extubated and conveyed to post-anesthesia care unit where she was in stable condition. TRANSINT:[id number] Voice Confirmation ID: [id number] DOCUMENT ID: [id number] JIMMY SZYMANSKI MD at 1017 CC: [id number] DICTATION DATE: 05/13/17 160 [employer] HITCH DRIVER: 05/13/171936 DIS IN 05/14/17 [facility] [address] [place] [address]
== END 2017-05-14 12:41 | disposition home health service (06) | DRG 330 ==
LOC: D.ER 07:28 → D.M2 09:23
PROVIDERS: Emergency Medicine; Surgery; ADMIT Family Medicine
PROC: 0D9670Z Drainage of Stomach with Drainage Device, Via Natural or Artificial Opening (ICD-10-PCS; principal; 2017-05-08)
PROC: 0YU50JZ Supplement Right Inguinal Region with Synthetic Substitute, Open Approach (ICD-10-PCS; 2017-05-09)
PROC: 0DB80ZZ Excision of Small Intestine, Open Approach (ICD-10-PCS; 2017-05-09 14:00)
DX: K56.609 Unspecified intestinal obstruction, unspecified as to partial versus complete obstruction (principal); K40.30 Unilateral inguinal hernia, with obstruction, without gangrene, not specified as recurrent; J98.11 Atelectasis; N39.0 Urinary tract infection, site not specified; K52.9 Noninfective gastroenteritis and colitis, unspecified; E86.0 Dehydration; K21.9 Gastro-esophageal reflux disease without esophagitis; B96.20 Unspecified Escherichia coli [E. coli] as the cause of diseases classified elsewhere; E87.6 Hypokalemia; I10 Essential (primary) hypertension; Z85.3 Personal history of malignant neoplasm of breast

== ENCOUNTER → 2018-02-25 12:51 | Outpatient (CLI) | payer MEDICARE, OTHER ==
[~2018-02-25 12:51] MED LIST: NASONEX NASAL S17 GM NS; OMEPRAZOLE20 M1 PO; ZOFRAN4 MG PO
== END | disposition home or self-care (01) ==
LOC: D.US 12:51
DX: R60.0 Localized edema (principal); I82.401 Acute embolism and thrombosis of unspecified deep veins of right lower extremity; D50.9 Iron deficiency anemia, unspecified; I83.10 Varicose veins of unspecified lower extremity with inflammation

== ENCOUNTER → 2018-04-28 16:18 | Outpatient (CLI) | payer MEDICARE, OTHER | END | disposition home or self-care (01) | LOC: D.LABREF 16:18 | DX: R31.9 Hematuria, unspecified (principal); D72.829 Elevated white blood cell count, unspecified ==

== ENCOUNTER → 2018-05-01 09:37 | Outpatient (CLI) | payer MEDICARE, OTHER | END | disposition home or self-care (01) | LOC: D.CT 09:37 | DX: N20.0 Calculus of kidney (principal) ==

== ENCOUNTER → 2018-05-26 16:25 | Outpatient (CLI) | payer MEDICARE, OTHER | END | disposition home or self-care (01) | LOC: D.LABREF 16:25 | DX: N39.0 Urinary tract infection, site not specified (principal) ==